=== PATIENT | female | born 1975 | race Caucasian/White ===

== ENCOUNTER 2019-03-17 17:48 | Outpatient (REF) | payer OTHER, SELFPAY ==
[2019-03-17 21:23] LABS: ALT 36 U/L (14-59); AST 20 U/L (15-37); Albumin 3.8 g/dL (3.4-5.0); Alkaline Phosphatase 81 U/L (46-116); Anion Gap 7.9 mmol/L (3-11); BUN 10 mg/dL (7-18); Bilirubin, Total 0.3 mg/dL (0.2-1.0); CO2 30.1 mmol/L (21.0-32.0); CREATININE 0.76 mg/dL (0.55-1.02); Calcium 8.9 mg/dL (8.5-10.1); Calculated LDL 160 mg/dL; Chloride 101 mmol/L (98-107); Cholesterol 219 mg/dL (<200); Glucose 74 mg/dL (74-106); HDL Cholesterol 35 mg/dL (40-60); Potassium 4.2 mmol/L (3.5-5.1); Sodium 139 mmol/L (136-145); Total Protein 7.6 g/dL (6.4-8.2); Triglyceride 124 mg/dL (<150)
== END 2019-03-17 18:08 ==
LOC: NCHCN 17:48
PROVIDERS: Visit Provider Registered Nurse
DX: Z00.00 Encounter for general adult medical examination without abnormal findings (principal); J45.30 Mild persistent asthma, uncomplicated; F32.9 Major depressive disorder, single episode, unspecified; F17.200 Nicotine dependence, unspecified, uncomplicated; Z15.01 Genetic susceptibility to malignant neoplasm of breast; Z87.19 Personal history of other diseases of the digestive system
CPT/HCPCS: 80053; 80061

== ENCOUNTER 2019-10-08 18:01 | Outpatient (REF) | payer OTHER, SELFPAY ==
[2019-10-08 20:32] LABS: Hemoglobin A1C 6.8 % (3.8-5.6)
== END 2019-10-08 18:21 ==
LOC: NCHCN 18:01
PROVIDERS: Visit Provider Registered Nurse
DX: E11.9 Type 2 diabetes mellitus without complications (principal)
CPT/HCPCS: 83036

== ENCOUNTER 2020-01-07 15:12 | Outpatient (REF) | payer OTHER, SELFPAY ==
[2020-01-07 22:51] LABS: COMMENT (LAB VIEW ONLY) 202.25 mg/dL; Microalb ug/mg Crea 10.9 ug/mg Cr
== END 2020-01-07 15:32 ==
LOC: NCHCN 15:12
PROVIDERS: PCP Registered Nurse; Visit Provider Registered Nurse
DX: E11.9 Type 2 diabetes mellitus without complications (principal)
CPT/HCPCS: 82043; 82570

== ENCOUNTER 2020-07-07 16:51 | Outpatient (REF) | payer OTHER, SELFPAY ==
[2020-07-07 22:22] LABS: Anion Gap 8.3 mmol/L (3-11); BUN 14 mg/dL (7-18); CO2 26.7 mmol/L (21.0-32.0); CREATININE 0.9 mg/dL (0.55-1.02); Calcium 8.8 mg/dL (8.5-10.1); Chloride 102 mmol/L (98-107); Glucose 271 mg/dL (74-106); Potassium 4.4 mmol/L (3.5-5.1); Sodium 137 mmol/L (136-145)
== END 2020-07-07 16:52 | disposition home or self-care (01) ==
LOC: NCHCN 16:51
PROVIDERS: PCP Registered Nurse; Visit Provider Registered Nurse
DX: E11.9 Type 2 diabetes mellitus without complications (principal); K76.0 Fatty (change of) liver, not elsewhere classified; E66.9 Obesity, unspecified
CPT/HCPCS: 80048

== ENCOUNTER 2021-01-05 10:18 | Outpatient (REF) | payer OTHER, SELFPAY ==
[2021-01-05 15:07] LABS: Abs Immature Grans 0.04 10^3/uL (0.0-0.06); Absolute Basophil Count 0.08 10^3/uL (0.0-0.2); Absolute Eosinophil Count 0.19 10^3/uL (0.0-0.7); Absolute Lymphocyte Count 3.21 10^3/uL (1.2-3.4); Absolute Monocyte Count 0.69 10^3/uL (0.1-0.8); Absolute Neutrophil Count 7.83 10^3/uL (1.2-6.7); Basophils % 0.7; Eosinophils % 1.6; HCT 41.6 % (36.0-46.0); HGB 13.3 g/dL (11.2-15.7); Immature Grans % 0.3; Lymphocytes % 26.7; MCH 28.1 pg (27.0-33.0); MCV 87.9 fL (80-95); MPV 9.1 fL (8.0-11.0); Monocytes % 5.7; Nucleated RBC 0 %; Platelet Count 406 10^3/uL (130-400); RBC 4.73 10^6/uL (3.93-5.22); RDW 13.5 % (11.7-14.6); RDW-SD 43.4 fL; WBC 12.04 10^3/uL (4.4-10.8)
[2021-01-05 15:19] LABS: ALT 42 U/L (14-59); AST 24 U/L (15-37); Albumin 3.9 g/dL (3.4-5.0); Alkaline Phosphatase 79 U/L (46-116); Anion Gap 7.4 mmol/L (3-11); BUN 8 mg/dL (7-18); Bilirubin, Total 0.3 mg/dL (0.2-1.0); CO2 29.6 mmol/L (21.0-32.0); CREATININE 0.7 mg/dL (0.55-1.02); Calcium 9.2 mg/dL (8.5-10.1); Chloride 104 mmol/L (98-107); Glucose 94 mg/dL (74-106); Potassium 4.8 mmol/L (3.5-5.1); Sodium 141 mmol/L (136-145); Total Protein 7.5 g/dL (6.4-8.2)
== END 2021-01-05 10:19 | disposition home or self-care (01) ==
LOC: NCHCN 10:18
PROVIDERS: PCP Registered Nurse; Visit Provider Registered Nurse
DX: R10.30 Lower abdominal pain, unspecified (principal)
CPT/HCPCS: 80053; 85025

== ENCOUNTER 2021-03-31 17:48 | Outpatient (REF) | payer OTHER, SELFPAY ==
[2021-03-31 21:24] LABS: COMMENT (LAB VIEW ONLY) 383.09 mg/dL
== END 2021-03-31 17:49 | disposition home or self-care (01) ==
LOC: NCHCN 17:48
PROVIDERS: PCP Registered Nurse; Visit Provider Registered Nurse
DX: E11.9 Type 2 diabetes mellitus without complications (principal)
CPT/HCPCS: 82043; 82570

== ENCOUNTER 2022-02-15 15:17 | Outpatient (REF) | payer OTHER, SELFPAY ==
[2022-02-15 21:03] LABS: HGB 13.4 g/dL (11.2-15.7); MCH 28.2 pg (27.0-33.0); MCHC 32.7 % (32.0-36.0); MCV 86 fL (80-95); MPV 9.1 fL (8.0-11.0); Platelet Count 367 10^3/uL (130-400); RBC 4.75 10^6/uL (3.93-5.22); RDW 13.2 % (11.7-14.6); RDW-SD 41.5 fL; WBC 14.59 10^3/uL (4.4-10.8)
[2022-02-15 21:25] LABS: ALT 30 U/L (14-59); AST 18 U/L (15-37); Albumin 3.4 g/dL (3.4-5.0); Alkaline Phosphatase 89 U/L (46-116); Anion Gap 7.1 mmol/L (3-11); BUN 11 mg/dL (7-18); Bilirubin, Total 0.2 mg/dL (0.2-1.0); CO2 29.9 mmol/L (21.0-32.0); CREATININE 0.7 mg/dL (0.55-1.02); Calcium 9.6 mg/dL (8.5-10.1); Chloride 100 mmol/L (98-107); Estimated GFR 108.62 (mL/min/1.73m2); Glucose 225 mg/dL (74-106); Sodium 137 mmol/L (136-145); TSH 2.48 uIU/mL (0.36-3.74); Total Protein 7.7 g/dL (6.4-8.2)
[2022-02-16 09:00] LABS: Abs Immature Grans 0.08 10^3/uL (0.0-0.06); Absolute Eosinophil Count 0.28 10^3/uL (0.0-0.7); Absolute Lymphocyte Count 3.98 10^3/uL (1.2-3.4); Absolute Monocyte Count 0.71 10^3/uL (0.1-0.8); Basophils % 0.7; Eosinophils % 1.9; Immature Grans % 0.6; Lymphocytes % 27.5; Monocytes % 4.9; Neutrophils % 64.4
== END 2022-02-15 15:18 | disposition home or self-care (01) ==
LOC: NCHCN 15:17
PROVIDERS: PCP Registered Nurse; Visit Provider Registered Nurse
DX: D72.829 Elevated white blood cell count, unspecified (principal); E11.9 Type 2 diabetes mellitus without complications; R53.83 Other fatigue; F32.9 Major depressive disorder, single episode, unspecified
CPT/HCPCS: 80053; 85027; 82043; 82570; 84443; 85007

== ENCOUNTER 2022-05-17 16:08 | Outpatient (REF) | payer OTHER, SELFPAY ==
[2022-05-17 22:03] LABS: COMMENT (LAB VIEW ONLY) 158.04 mg/dL; Microalb ug/mg Crea 13.8 ug/mg Cr
== END 2022-05-17 16:09 | disposition home or self-care (01) ==
LOC: NCHCN 16:08
PROVIDERS: PCP Registered Nurse; Visit Provider Registered Nurse
DX: R53.83 Other fatigue; E11.9 Type 2 diabetes mellitus without complications
CPT/HCPCS: 82043; 82570

== ENCOUNTER 2023-06-21 18:46 | Outpatient (REF) | payer OTHER, SELFPAY ==
[2023-06-21 21:34] LABS: COMMENT (LAB VIEW ONLY) 92.71 mg/dL; Microalb ug/mg Crea 28.8 ug/mg Cr
== END 2023-06-21 18:47 | disposition home or self-care (01) ==
LOC: NCHCN 18:46
PROVIDERS: PCP Registered Nurse; Visit Provider Family Medicine
DX: E11.9 Type 2 diabetes mellitus without complications (principal)
CPT/HCPCS: 82043; 82570

== ENCOUNTER 2023-09-28 12:49 | Outpatient (REF) | payer SELFPAY ==
[2023-09-28 15:04] LABS: BUN 10 mg/dL (7-18); CREATININE 0.8 mg/dL (0.55-1.02); Calcium 9.1 mg/dL (8.5-10.1); Chloride 101 mmol/L (98-107); Estimated GFR 91.97 (mL/min/1.73m2); Glucose 132 mg/dL (74-106); Potassium 4.2 mmol/L (3.5-5.1); Sodium 137 mmol/L (136-145)
[2023-09-28 16:20] LABS: Hemoglobin A1C 8.4 % (<5.7)
== END 2023-09-28 12:50 | disposition home or self-care (01) ==
LOC: NCHCN 12:49
PROVIDERS: PCP Registered Nurse; Visit Provider Family Medicine
DX: I10 Essential (primary) hypertension (principal); E11.9 Type 2 diabetes mellitus without complications
CPT/HCPCS: 80048; 83036

== ENCOUNTER 2025-02-25 16:23 | Outpatient (REF) | payer OTHER, SELFPAY ==
[2025-02-25 23:00] LABS: Microalb ug/mg Crea 10.5 ug/mg Cr
== END 2025-02-25 16:24 | disposition home or self-care (01) ==
LOC: NCHCN 16:23
PROVIDERS: PCP Registered Nurse; Visit Provider Family Medicine
DX: E11.9 Type 2 diabetes mellitus without complications (principal)
CPT/HCPCS: 82043; 82570